=== PATIENT | female | born 1980 | race Caucasian/White ===

== ENCOUNTER 2017-04-08 01:02 | Inpatient (IN) | payer OTHER ==
[~2017-04-08] VITALS: Ht 167.6 cm; Wt 86.6 kg
[2017-04-08 01:13] VITALS: BP 113/90
[2017-04-08 02:42] LABS: BASOPHILS # (AUTO) 0.2 K/uL (0.00-0.22); BASOPHILS % (AUTO) 1.2 % (0.0-2.0); EOSINOPHILS # (AUTO) 0.3 K/uL (0-0.4); EOSINOPHILS % (AUTO) 1.8 % (0.0-4.0); HEMATOCRIT 37.8 % (36-48); HEMOGLOBIN 12.5 g/dL (12.0-16.0); LYMPHOCYTES # (AUTO) 2.8 K/uL (2.5-16.5); LYMPHOCYTES % (AUTO) 15.9 % (20.5-51.1); MEAN CORPUSCULAR HEMOGLOBIN 28 pg (27-31); MEAN CORPUSCULAR HGB CONC 33 g/dL (33-37); MEAN CORPUSCULAR VOLUME 86 fL (80-94); MONOCYTES # (AUTO) 1.3 K/uL (0.8-1.0); MONOCYTES % (AUTO) 7.2 % (1.7-9.3); PLATELET COUNT (AUTO) 356 K/uL (140-450); RED BLOOD CELL COUNT(AUTO) 4.39 MIL/uL (4.20-5.40); RED CELL DISTRIBUTION WIDTH 13.5 % (11.6-13.7); WHITE BLOOD COUNT (AUTO) 17.6 K/uL (4.8-10.8)
[2017-04-08 02:57] LABS: NEUTROPHILS % (AUTO) 73.9 % (42.2-75.2)
[2017-04-08 02:58] LABS: ANION GAP 13.3 (8-16); CALCIUM 8.1 mg/dL (8.5-10.1); CARBON DIOXIDE 24.4 mmol/L (21-32); CREATININE 0.9 mg/dL (0.6-1.3); POTASSIUM 3.7 mmol/L (3.5-5.1); TOTAL PROTEIN, SERUM 7.5 g/dL (6.4-8.2)
[2017-04-08 03:02] LABS: LACTIC ACID 0.9 mmol/L (0.4-2.0)
[2017-04-08] MEDS ORDERED: ACETAMINOPHEN 325 MG TAB PO PRN (03:45)
[2017-04-08] MEDS ORDERED: cefTRIAXone 1,000 MG VIAL ONE (04:10)
[2017-04-08 04:30] VITALS: BP 131/54
[2017-04-08] MEDS ORDERED: PROCHLORPERAZINE 10 MG/2 ML VIAL IVP SCH (05:00)
[2017-04-08] MEDS ORDERED: PROCHLORPERAZINE 10 MG/2 ML VIAL IVP PRN (05:30)
[2017-04-08] MEDS: metroNIDAZOLE 500 MG/NS PREMIX 100 ML IV SCH ×2 (05:32→12:49)
[2017-04-08] MEDS: DEXT 5% /NACL 0.9% 1,000 ML IV SCH ×2 (05:36→20:25)
[2017-04-08] MEDS ORDERED: LEVOFLOXACIN 500 MG/D5W PREMIX 100 ML IV SCH (06:30)
[2017-04-08] MEDS: MORPHINE SULFATE 4 MG/ML SYR IVP PRN ×2 (07:56→15:57)
[2017-04-08 08:00] VITALS: BP 118/62
[2017-04-08] MEDS ORDERED: diphenhydrAMINE 50 MG CAP PO PRN (08:50)
[2017-04-08] MEDS ORDERED: VANCOMYCIN PER PHARMACY MC PRN (08:50)
[2017-04-08] MEDS: VANCOMYCIN 1GM/DEXT 5% PREMIX 200 ML IV SCH ×2 (11:26→23:10)
[2017-04-08] MEDS: PIPER/TAZO 3.375GM/D5W PREMIX 50 ML IV SCH ×2 (12:48→21:04)
[2017-04-08] MEDS ORDERED: PIPER/TAZO 3.375GM/D5W PREMIX 50 ML IV SCH (13:00)
[2017-04-08 14:46] LABS: INR 1.2 (0.8-1.2); PROTHROMBIN TIME 11.7 secs (10.8-13.4)
[2017-04-08 16:00] VITALS: BP 130/60
[2017-04-09] VITALS (11 sets, daily range): BP systolic 109–145; BP diastolic 51–72
[2017-04-09] MEDS: HYDROcodone/APAP 5/325 MG 1 TAB TAB PO PRN ×2 (00:48→23:17)
[2017-04-09] MEDS: PIPER/TAZO 3.375GM/D5W PREMIX 50 ML IV SCH ×3 (05:40→21:14)
[2017-04-09 05:46] LABS: BASOPHILS # (AUTO) 0.1 K/uL (0.00-0.22); BASOPHILS % (AUTO) 0.7 % (0.0-2.0); EOSINOPHILS # (AUTO) 0.3 K/uL (0-0.4); HEMATOCRIT 35.6 % (36-48); HEMOGLOBIN 11.7 g/dL (12.0-16.0); LYMPHOCYTES # (AUTO) 2.3 K/uL (2.5-16.5); LYMPHOCYTES % (AUTO) 16.3 % (20.5-51.1); MEAN CORPUSCULAR HEMOGLOBIN 29 pg (27-31); MEAN CORPUSCULAR HGB CONC 33 g/dL (33-37); MEAN CORPUSCULAR VOLUME 87 fL (80-94); MONOCYTES # (AUTO) 0.9 K/uL (0.8-1.0); MONOCYTES % (AUTO) 6.3 % (1.7-9.3); NEUTROPHILS # (AUTO) 10.6 K/uL (1.8-7.7); NEUTROPHILS % (AUTO) 74.7 % (42.2-75.2); PLATELET COUNT (AUTO) 312 K/uL (140-450); RED BLOOD CELL COUNT(AUTO) 4.08 MIL/uL (4.20-5.40); RED CELL DISTRIBUTION WIDTH 13.7 % (11.6-13.7); WHITE BLOOD COUNT (AUTO) 14.2 K/uL (4.8-10.8)
[2017-04-09] MEDS: DEXT 5% /NACL 0.9% 1,000 ML IV SCH (06:03)
[2017-04-09 06:21] LABS: ANION GAP 7.4 (8-16); CALCIUM 8.2 mg/dL (8.5-10.1); CARBON DIOXIDE 29.8 mmol/L (21-32); CREATININE 0.9 mg/dL (0.6-1.3); POTASSIUM 4.2 mmol/L (3.5-5.1)
[2017-04-09] MEDS ORDERED: SEVOFLURANE 250 ML BTL INH ONE (09:30)
[2017-04-09] MEDS ORDERED: PROPOFOL 200 MG/20 ML VIAL IV ONE (09:30)
[2017-04-09] MEDS ORDERED: ONDANSETRON 4 MG/2 ML VIAL IVP ONE (09:30)
[2017-04-09] MEDS ORDERED: DEXAMETHASONE 4 MG/ML VIAL IVP ONE (09:30)
[2017-04-09] MEDS ORDERED: BUPIVACAINE-MPF/EPI 0.25% 30 ML VIAL INJ ONE (09:34)
[2017-04-09] MEDS ORDERED: GELATIN SPONGE 100 1 SPG TP ONE (09:34)
[2017-04-09] MEDS ORDERED: MEPERIDINE 50 MG/ML SYR ONE (09:36)
[2017-04-09] MEDS ORDERED: MIDAZOLAM 2 MG/2 ML VIAL ONE (09:36)
[2017-04-09] MEDS ORDERED: fentaNYL 0.05 MG/ML VIAL ONE (09:37)
[2017-04-09] MEDS ORDERED: LACTATED RINGERS 1,000 ML IV SCH (10:23)
[2017-04-09] MEDS ORDERED: MEPERIDINE 25 MG/ML SYR IVP PRN (10:25)
[2017-04-09] MEDS ORDERED: diphenhydrAMINE 50 MG/ML VIAL IVP PRN (10:25)
[2017-04-09] MEDS ORDERED: ONDANSETRON 4 MG/2 ML VIAL IVP PRN (10:25)
[2017-04-09] MEDS ORDERED: BUPIVACAINE-MPF 0.25% 30 ML VIAL INJ ONE (10:34)
[2017-04-09] MEDS: VANCOMYCIN 1GM/DEXT 5% PREMIX 200 ML IV SCH ×2 (11:30→23:10)
[2017-04-10] VITALS: BP 122/71
[2017-04-10 04:00] VITALS: BP 114/76
[2017-04-10] MEDS: DEXT 5% /NACL 0.9% 1,000 ML IV SCH (05:45)
[2017-04-10 06:11] LABS: BASOPHILS # (AUTO) 0.1 K/uL (0.00-0.22); BASOPHILS % (AUTO) 0.6 % (0.0-2.0); EOSINOPHILS # (AUTO) 0.2 K/uL (0-0.4); EOSINOPHILS % (AUTO) 1.1 % (0.0-4.0); HEMATOCRIT 35.8 % (36-48); HEMOGLOBIN 11.8 g/dL (12.0-16.0); LYMPHOCYTES # (AUTO) 2.3 K/uL (2.5-16.5); LYMPHOCYTES % (AUTO) 13.8 % (20.5-51.1); MEAN CORPUSCULAR HEMOGLOBIN 28 pg (27-31); MEAN CORPUSCULAR HGB CONC 33 g/dL (33-37); MEAN CORPUSCULAR VOLUME 86 fL (80-94); MONOCYTES % (AUTO) 5.7 % (1.7-9.3); NEUTROPHILS # (AUTO) 13.2 K/uL (1.8-7.7); NEUTROPHILS % (AUTO) 78.8 % (42.2-75.2); PLATELET COUNT (AUTO) 353 K/uL (140-450); RED BLOOD CELL COUNT(AUTO) 4.15 MIL/uL (4.20-5.40); RED CELL DISTRIBUTION WIDTH 13.4 % (11.6-13.7)
[2017-04-10] MEDS: PIPER/TAZO 3.375GM/D5W PREMIX 50 ML IV SCH ×2 (06:26→13:17)
[2017-04-10 06:39] LABS: ALBUMIN 2.5 g/dL (3.4-5.0); ANION GAP 9.5 (8-16); CALCIUM 8.3 mg/dL (8.5-10.1); CARBON DIOXIDE 27.4 mmol/L (21-32); CREATININE 0.8 mg/dL (0.6-1.3); POTASSIUM 3.9 mmol/L (3.5-5.1); TOTAL BILIRUBIN 0.4 mg/dL (0.0-1.0); TOTAL PROTEIN, SERUM 7.6 g/dL (6.4-8.2)
[2017-04-10 07:06] LABS: WHITE BLOOD COUNT (AUTO) 16.8 K/uL (4.8-10.8)
[2017-04-10 08:00] VITALS: BP 162/76
[2017-04-10] MEDS: HYDROmorphone 1 MG/ML AMP IVP PRN ×2 (08:27→08:48)
[2017-04-10] MEDS ORDERED: ENOXAPARIN 40 MG/0.4 ML SYR SUBQ SCH (09:00)
[2017-04-10] MEDS ORDERED: VANCOMYCIN 1GM/DEXT 5% PREMIX 200 ML IV SCH (10:00)
[2017-04-10 12:00] VITALS: BP 118/73
[2017-04-10] MEDS ORDERED: CLIN300C2 PO (14:09)
[2017-04-10] MEDS ORDERED: CEPH250C16 PO (14:10)
[2017-04-10] MEDS ORDERED: ACET-5629 PO (14:12)
== END 2017-04-10 16:00 | disposition home or self-care (01) | DRG 710 ==
LOC: MED 01:02 → MTU 04:01
PROVIDERS: ADMIT Hospitalist; ATTEND Hospitalist
PROC: 0DJD8ZZ Inspection of Lower Intestinal Tract, Via Natural or Artificial Opening Endoscopic (ICD-10-PCS; 2017-04-09)
PROC: 0D9Q0ZZ Drainage of Anus, Open Approach (ICD-10-PCS; principal; 2017-04-09 08:30)
PROC: 0JB90ZZ Excision of Buttock Subcutaneous Tissue and Fascia, Open Approach (ICD-10-PCS; 2017-04-09 08:30)
DX: A41.9 Sepsis, unspecified organism (principal); E66.01 Morbid (severe) obesity due to excess calories; K61.0 Anal abscess; B95.62 Methicillin resistant Staphylococcus aureus infection as the cause of diseases classified elsewhere; Z68.30 Body mass index [BMI] 30.0-30.9, adult; Z90.49 Acquired absence of other specified parts of digestive tract
CPT/HCPCS: 36415; 80048; 80053; 80202; 81025; 83036; 83605; 84703; 85025; 85610; 87040; 87070; 87075; 87077; 87081; 87186; 87205; 88304; 96365; 99285; J0696; J0780; J1100; J1170; J1650; J1956; J2175; J2250; J2270; J2405; J2543; J2704; J3010; J3370; J3490; J7030; J7042; J7060; Q0163